=== PATIENT | male | born 1990 | race Caucasian/White ===

== ENCOUNTER 2017-02-21 08:13 | Emergency (ER) | payer SELFPAY ==
[~2017-02-21] VITALS: Ht 185.4 cm; Wt 84.1 kg
[2017-02-21 08:21] VITALS: BP 143/89; PULSE 69; RESP 15; O2SAT 98
--- NOTE | 2017-02-21 08:45 | ED.REPORT ---
HPI-Rash / Abscess Date of Service Feb 21, 2017 ED Provider: Oskar Zamora MD The pt is a 26 y/o male presenting to the ED complaining of a L axillary abscess onset 4 days ago. The pt also had a smaller abscess in the same area 6 months ago but had to receive antibiotics for it. There is no hx of IV drug use. Nursing Notes Stated Complaint: ARMPIT ABSCESS Chief Complaint: Skin Rash/Abscess Nursing Notes Reviewed: Yes Allergies: Coded Allergies: Penicillins (Verified Allergy, Intermediate, RASH, 02/21/17) Scheduled Sulfamethoxazole/Trimeth 800-160 mg (Bactrim DS) 1 Each Tablet 1 TABLET PO BID General Time Seen by MD: 08:35 Chief Complaint Abscess (L armpit ) Hx Obtained From: Patient Arrived By: Walk-in Onset Occurred: 4 days ago Symptom Duration: Since onset Recent Healthcare: No recent hospitalization, Recent doctor visit Similar Sx Previous: Yes Past Medical History Past Medical History None reported Past Surgical History None reported Smoking History Unknown if Ever Smoker Social History Drug Use: Denies drug use Other Social History: Good social support Ambulatory Status Independent Review of Systems L armpit abscess Constitutional: Denies: Chills, Fever Complete sys rev & neg: except as marked. Physical Exam Initial Vital Signs Vital Signs (First) Date Time Temp Pulse Resp B/P Pulse Ox O2 Delivery O2 Flow Rate FiO2 02/21/17 08:21 36.1 69 15 143/89 98 Room Air Initial VS: Reviewed Head / Eyes: Atraumatic, Normocephalic, PERRL ENT: Mucous membranes moist, Conjunctiva normal, No scleral icterus Neck: Supple, Non-tender, Full range of motion Respiratory: Breath sounds normal, Clear to auscultation, No respiratory distress Cardiovascular: Regular rate & rhythm, Heart sounds normal, Intact distal pulses Extremities: Vascular intact, Neuro intact, No swelling, No tenderness Neurologic: Alert, Oriented, Nonfocal Psychiatric: Mood/affect normal, Behavior normal, Normal thought content General/Constitutional: Awake, Alert Skin: Warm, Dry, Intact L armpit has a very small 1 cm erythematous mass and swelling w/ no fluctuance or discharge Re-Eval/Medical Decision Med Decision/Clinical Course Left axillary abscess times several days. There is no fluctuance or discharge. Patient out for oral antibiotics rather than incision and drainage at this time. I think this is reasonable given no fluctuance or discharge. He will be placed on Bactrim. Return precautions given. F/u PMD. Source of Hx: Old records Counseled Regarding: Diagnosis, Need for follow-up, When/why to return to ED Discharge & Departure Impression: Primary Impression: Abscess of left axilla Disposition: Home Discharge Condition All VS Reviewed: Yes Condition: Stable Additional Instructions: Thank for you entrusting us with your care today. You were diagnosed with a left axillary abscess. Please take the Bactrim as prescribed and follow up with your primary care provider with any further questions. Return to the ED if you develop any fevers, nausea, vomiting, or the area becomes more swollen, red, discharge, other new or worsening symptoms. Referrals: Praveen Cleary PA-C (PCP) Scribe Attestation Portions of this note were transcribed by Fabian Woods. I, Dr. Zamora personally performed the history, physical exam and medical decision-making; I reviewed and confirmed the accuracy of the information in the transcribed note. copies to: Praveen Cleary PA-C, Ben M MD Feb 21, 2017 08:45 Fabian Woods Feb 21, 2017 09:08
[2017-02-21] MEDS ORDERED: SULF1TAB7 PO (09:06)
== END 2017-02-21 09:08 | disposition home or self-care (01) ==
LOC: SED 08:13
DX: L02.412 Cutaneous abscess of left axilla (principal); Z88.0 Allergy status to penicillin